=== PATIENT | female | born 1965 | race Caucasian/White ===

== ENCOUNTER 2020-12-09 22:57 | Inpatient (IN) | payer MEDICARE, MEDICAID ==
[~2020-12-09] VITALS: Ht 160 cm; Wt 122.9 kg
[2020-12-09] MEDS ORDERED: FAMO20 PO (23:28)
[2020-12-09] MEDS ORDERED: CYCL10TA17 PO (23:28)
[2020-12-09] MEDS ORDERED: SERT-162 PO (23:28)
[2020-12-09 23:58] LABS: COVID AG,FIA SOURCE NASOPHARYNGEAL
[2020-12-10 00:04] LABS: BASOPHILS % (AUTO) 0.2 % (0.0-2.0); EOSINOPHILS % (AUTO) 5.1 % (1.0-6.0); HEMATOCRIT 23.9 % (36-46); HEMOGLOBIN 7.8 g/dL (12.0-16.0); LYMPHOCYTES % (AUTO) 10.6 % (22.0-44.0); MEAN CORPUSCULAR HEMOGLOBIN 35.2 pg (26.0-34.0); MEAN CORPUSCULAR HGB CONC 32.5 G/dL (31.0-37.0); MEAN CORPUSCULAR VOLUME 109 fL (80-100); MONOCYTES # (AUTO) 0.8 K/uL (0.1-1.0); MONOCYTES % (AUTO) 8.8 % (2.0-9.0); NEUTROPHILS % (AUTO) 75.3 % (40.0-70.0); PLATELET COUNT (AUTO) 485 K/uL (150-450); RED BLOOD CELL COUNT(AUTO) 2.21 MIL/uL (4.00-5.20); RED CELL DISTRIBUTION WIDTH 22.2 % (11.5-14.5)
[2020-12-10 00:07] LABS: ANION GAP 11 mmol/L (8-16); CALCIUM, TOTAL 8.2 mg/dL (8.8-10.5); CARBON DIOXIDE 26 mmol/L (22-29); CHLORIDE 105 mmol/L (98-107); CREATININE 0.65 mg/dL (0.60-1.30); GLOMERULAR FILTR. RATE CALC > 60 mL/min (>60); GLUCOSE,RANDOM 173 mg/dL (70-110); POTASSIUM 3.9 mmol/L (3.5-5.1); SODIUM SERUM 142 mmol/L (136-145); UREA NITROGEN, BLOOD 11 mg/dL (7-18)
[2020-12-10 00:12] LABS: ALANINE AMINOTRANSFERASE 37 U/L (12-78); ALKALINE PHOSPHATASE 92 U/L (46-116); ASPARTATE AMINOTRANSFERASE 39 U/L (15-37); BILIRUBIN,TOTAL 0.2 mg/dL (0.1-1.0); TOTAL PROTEIN, SERUM 6.7 g/dL (6.4-8.2)
[2020-12-10 00:13] LABS: SALICYLATE 2.8 mg/dL (2.8-20.0)
[2020-12-10 00:23] LABS: ACETAMINOPHEN < 2 mcg/mL (10-30)
[2020-12-10] MEDS ORDERED: QUEtiapine FUMARATE 100 MG TABLET PO ONE (01:45)
[2020-12-10] MEDS ORDERED: DiphenhydrAMINE HCL 25 MG CAPSULE PO ONE (01:45)
[2020-12-10] MEDS ORDERED: ZOLPIDEM TARTRATE 10 MG TABLET PO PRN (02:00)
[2020-12-10] MEDS ORDERED: HALOPERIDOL 5 MG TABLET PO PRN (02:00)
[2020-12-10] MEDS ORDERED: PETROLATUM,WHITE 28 GM JELLY TP PRN (10:15)
[2020-12-10] MEDS ORDERED: GuaiFENesin/D-METHORPHAN [SUGAR-FREE] 200-20MG/10 ML SYRUP UDCUP PO PRN (10:15)
[2020-12-10] MEDS ORDERED: CloNIDine HCL 0.1 MG TABLET PO PRN (10:15)
[2020-12-10] MEDS ORDERED: NICOTINE 14 MG/24 HOUR PATCH TD PRN (10:15)
[2020-12-10] MEDS ORDERED: LOPERAMIDE HCL 2 MG CAPSULE PO PRN (10:15)
[2020-12-10] MEDS ORDERED: DOCUSATE SODIUM 100 MG CAPSULE PO PRN (10:15)
[2020-12-10] MEDS ORDERED: MAGNESIUM HYDROXIDE SUSPENSION 30 ML UDCUP PO PRN (10:15)
[2020-12-10] MEDS ORDERED: MAG HYDROX/AL HYDROX/SIMETH ES 30 ML SUSPENSION UDCUP PO PRN (10:15)
[2020-12-10] MEDS ORDERED: ALBUTEROL SULFATE HFA 90 MCG/PUFF 8 GM INHALER IH PRN (10:15)
[2020-12-10] MEDS ORDERED: ONDANSETRON HCL 4 MG TABLET PO PRN (10:15)
[2020-12-10 10:37] LABS: GLUCOMETER DEV NAME(LOC) BV2X.2; GLUCOSE,POINT OF CARE 195 MG/DL (70-110)
[2020-12-10 11:24] VITALS: BP 138/78
[2020-12-10] MEDS ORDERED: GLUCAGON,HUMAN RECOMBINANT 1 MG VIAL IM PRN (12:15)
[2020-12-10] MEDS ORDERED: INFLUENZA VIRUS VACCINE QVS 2021-22 (6MO+)/PF 60 MCG/0.5 ML SYRINGE IM. ONE (13:15)
[2020-12-10] MEDS ORDERED: PERMETHRIN 5% 60 GM CREAM TP ONE (14:00)
[2020-12-10] MEDS: CYCLOBENZAPRINE HCL 10 MG TABLET PO SCH (16:45)
[2020-12-10] MEDS: INSULIN LISPRO 100 UNITS/ML SQ PRN ×2 (16:57→21:11)
[2020-12-10 17:08] LABS: GLUCOMETER DEV NAME(LOC) BV2X.2; GLUCOSE,POINT OF CARE 166 MG/DL (70-110)
[2020-12-10] MEDS: SERTRALINE HCL 100 MG TABLET PO SCH (20:02)
[2020-12-10 20:18] LABS: GLUCOMETER DEV NAME(LOC) BV2X.2; GLUCOSE,POINT OF CARE 192 MG/DL (70-110)
[2020-12-11 00:11] VITALS: BP 129/80
[2020-12-11 05:53] LABS: GLUCOMETER DEV NAME(LOC) BV2X.2; GLUCOSE,POINT OF CARE 143 MG/DL (70-110)
[2020-12-11] MEDS: INSULIN LISPRO 100 UNITS/ML SQ PRN ×4 (06:33→21:02)
[2020-12-11 08:22] VITALS: BP 110/63
[2020-12-11 08:25] LABS: CHOL/HDL RATIO 3.4 (3.9-5.7)
[2020-12-11] MEDS: CYCLOBENZAPRINE HCL 10 MG TABLET PO SCH ×2 (08:30→16:21)
[2020-12-11] MEDS: FAMOTIDINE 20 MG TABLET PO SCH (08:30)
[2020-12-11] MEDS: LORazepam 2 MG TABLET PO PRN (08:31)
[2020-12-11] MEDS: NICOTINE 14 MG/24 HOUR PATCH TD SCH (11:50)
[2020-12-11] MEDS: QUEtiapine FUMARATE 100 MG TABLET PO SCH (11:50)
[2020-12-11 11:52] LABS: GLUCOMETER DEV NAME(LOC) BV2X.2; GLUCOSE,POINT OF CARE 196 MG/DL (70-110)
[2020-12-11 16:03] VITALS: BP 108/64
[2020-12-11 16:53] LABS: GLUCOMETER DEV NAME(LOC) BV2X.2; GLUCOSE,POINT OF CARE 143 MG/DL (70-110)
[2020-12-11] MEDS: QUEtiapine FUMARATE 300 MG TABLET PO SCH (20:24)
[2020-12-11] MEDS: SERTRALINE HCL 100 MG TABLET PO SCH (20:25)
[2020-12-11 21:09] LABS: GLUCOMETER DEV NAME(LOC) BV2X.2; GLUCOSE,POINT OF CARE 224 MG/DL (70-110)
[2020-12-12 06:11] LABS: GLUCOMETER DEV NAME(LOC) BV2X.2; GLUCOSE,POINT OF CARE 131 MG/DL (70-110)
[2020-12-12 08:05] VITALS: BP 103/63
[2020-12-12] MEDS: CYCLOBENZAPRINE HCL 10 MG TABLET PO SCH ×2 (08:49→16:09)
[2020-12-12] MEDS: FAMOTIDINE 20 MG TABLET PO SCH (08:49)
[2020-12-12] MEDS: QUEtiapine FUMARATE 100 MG TABLET PO SCH (08:50)
[2020-12-12] MEDS: NICOTINE 14 MG/24 HOUR PATCH TD SCH (08:56)
[2020-12-12] MEDS: LORazepam 2 MG TABLET PO PRN ×2 (11:17→16:17)
[2020-12-12] MEDS: INSULIN LISPRO 100 UNITS/ML SQ PRN ×3 (11:29→20:38)
[2020-12-12 16:07] VITALS: BP 106/64
[2020-12-12 16:29] LABS: GLUCOMETER DEV NAME(LOC) BV2X.2; GLUCOSE,POINT OF CARE 163 MG/DL (70-110)
[2020-12-12] MEDS: SERTRALINE HCL 100 MG TABLET PO SCH (20:29)
[2020-12-12] MEDS: DiphenhydrAMINE HCL 25 MG CAPSULE PO PRN (20:29)
[2020-12-12] MEDS: QUEtiapine FUMARATE 300 MG TABLET PO SCH (20:29)
[2020-12-12 20:55] LABS: GLUCOMETER DEV NAME(LOC) BV2X.2; GLUCOSE,POINT OF CARE 158 MG/DL (70-110)
[2020-12-13 00:05] VITALS: BP 120/63
[2020-12-13 06:48] LABS: GLUCOMETER DEV NAME(LOC) BV2X.2; GLUCOSE,POINT OF CARE 151 MG/DL (70-110)
[2020-12-13] MEDS: INSULIN LISPRO 100 UNITS/ML SQ PRN ×4 (06:48→21:07)
[2020-12-13] MEDS: QUEtiapine FUMARATE 100 MG TABLET PO SCH (08:22)
[2020-12-13] MEDS: NICOTINE 14 MG/24 HOUR PATCH TD SCH (08:23)
[2020-12-13] MEDS: FAMOTIDINE 20 MG TABLET PO SCH (08:23)
[2020-12-13] MEDS: CYCLOBENZAPRINE HCL 10 MG TABLET PO SCH ×2 (08:23→16:39)
[2020-12-13] MEDS: MULTIVITAMINS WITH IRON TABLET PO SCH (08:23)
[2020-12-13 08:36] VITALS: BP 105/62
[2020-12-13] MEDS: IBUPROFEN 400 MG TABLET PO PRN (10:46)
[2020-12-13 11:09] LABS: GLUCOMETER DEV NAME(LOC) BV2X.2; GLUCOSE,POINT OF CARE 191 MG/DL (70-110)
[2020-12-13 16:24] VITALS: BP 111/60
[2020-12-13 16:24] LABS: GLUCOMETER DEV NAME(LOC) BV2X.2; GLUCOSE,POINT OF CARE 152 MG/DL (70-110)
[2020-12-13 20:21] LABS: GLUCOMETER DEV NAME(LOC) BV2X.2; GLUCOSE,POINT OF CARE 195 MG/DL (70-110)
[2020-12-13] MEDS: QUEtiapine FUMARATE 300 MG TABLET PO SCH (21:07)
[2020-12-13] MEDS: SERTRALINE HCL 100 MG TABLET PO SCH (21:07)
[2020-12-14 00:10] VITALS: BP 108/62
[2020-12-14 06:51] LABS: GLUCOMETER DEV NAME(LOC) BV2X.2; GLUCOSE,POINT OF CARE 133 MG/DL (70-110)
[2020-12-14] MEDS: FAMOTIDINE 20 MG TABLET PO SCH (08:15)
[2020-12-14] MEDS: CYCLOBENZAPRINE HCL 10 MG TABLET PO SCH ×2 (08:15→16:10)
[2020-12-14] MEDS: QUEtiapine FUMARATE 100 MG TABLET PO SCH (08:16)
[2020-12-14] MEDS: NICOTINE 14 MG/24 HOUR PATCH TD SCH (08:17)
[2020-12-14 08:25] VITALS: BP 104/58
[2020-12-14] MEDS: LORazepam 2 MG TABLET PO PRN (08:26)
[2020-12-14] MEDS: ACETAMINOPHEN 325 MG TABLET PO PRN (08:27)
[2020-12-14] MEDS: MULTIVITAMINS WITH IRON TABLET PO SCH (09:54)
[2020-12-14] MEDS: INSULIN LISPRO 100 UNITS/ML SQ PRN ×3 (11:23→20:24)
[2020-12-14] MEDS: DiphenhydrAMINE HCL 25 MG CAPSULE PO PRN (11:26)
[2020-12-14 11:30] LABS: GLUCOMETER DEV NAME(LOC) BV2X.2; GLUCOSE,POINT OF CARE 229 MG/DL (70-110)
[2020-12-14 16:04] VITALS: BP 107/88
[2020-12-14 16:55] LABS: GLUCOMETER DEV NAME(LOC) BV2X.2; GLUCOSE,POINT OF CARE 153 MG/DL (70-110)
[2020-12-14] MEDS: QUEtiapine FUMARATE 300 MG TABLET PO SCH (20:11)
[2020-12-14] MEDS: SERTRALINE HCL 100 MG TABLET PO SCH (20:11)
[2020-12-14 20:21] LABS: GLUCOMETER DEV NAME(LOC) BV2X.2; GLUCOSE,POINT OF CARE 202 MG/DL (70-110)
[2020-12-15 00:38] VITALS: BP 142/66
[2020-12-15 06:26] LABS: GLUCOMETER DEV NAME(LOC) BV2X.2; GLUCOSE,POINT OF CARE 139 MG/DL (70-110)
[2020-12-15 07:35] LABS: COVID AG,FIA SOURCE NASOPHARYNGEAL
[2020-12-15] MEDS: QUEtiapine FUMARATE 100 MG TABLET PO SCH (08:07)
[2020-12-15] MEDS: FAMOTIDINE 20 MG TABLET PO SCH (08:08)
[2020-12-15] MEDS: MULTIVITAMINS WITH IRON TABLET PO SCH (08:08)
[2020-12-15] MEDS: CYCLOBENZAPRINE HCL 10 MG TABLET PO SCH ×2 (08:08→16:32)
[2020-12-15 08:09] VITALS: BP 107/59
[2020-12-15] MEDS: NICOTINE 14 MG/24 HOUR PATCH TD SCH (08:09)
[2020-12-15] MEDS: INSULIN LISPRO 100 UNITS/ML SQ PRN ×3 (12:52→20:46)
[2020-12-15 13:00] LABS: GLUCOMETER DEV NAME(LOC) BV2X.2; GLUCOSE,POINT OF CARE 265 MG/DL (70-110)
[2020-12-15] MEDS: ACETAMINOPHEN 325 MG TABLET PO PRN (13:59)
[2020-12-15 16:04] VITALS: BP 120/75
[2020-12-15] MEDS: LORazepam 2 MG TABLET PO PRN (16:05)
[2020-12-15 16:29] LABS: GLUCOMETER DEV NAME(LOC) BV2X.2; GLUCOSE,POINT OF CARE 228 MG/DL (70-110)
[2020-12-15] MEDS: QUEtiapine FUMARATE 300 MG TABLET PO SCH (20:27)
[2020-12-15] MEDS: SERTRALINE HCL 100 MG TABLET PO SCH (20:27)
[2020-12-15 20:37] LABS: GLUCOMETER DEV NAME(LOC) BV2X.2; GLUCOSE,POINT OF CARE 167 MG/DL (70-110)
[2020-12-16 06:14] LABS: GLUCOMETER DEV NAME(LOC) BV2X.2; GLUCOSE,POINT OF CARE 137 MG/DL (70-110)
[2020-12-16 06:29] VITALS: BP 118/76
[2020-12-16] MEDS: ACETAMINOPHEN 325 MG TABLET PO PRN (06:32)
[2020-12-16 08:01] VITALS: BP 122/78
[2020-12-16] MEDS: MULTIVITAMINS WITH IRON TABLET PO SCH (08:09)
[2020-12-16] MEDS: CYCLOBENZAPRINE HCL 10 MG TABLET PO SCH ×2 (08:09→16:28)
[2020-12-16] MEDS: NICOTINE 14 MG/24 HOUR PATCH TD SCH (08:09)
[2020-12-16] MEDS: QUEtiapine FUMARATE 100 MG TABLET PO SCH (08:09)
[2020-12-16] MEDS: FAMOTIDINE 20 MG TABLET PO SCH (08:09)
[2020-12-16] MEDS: INSULIN LISPRO 100 UNITS/ML SQ PRN ×3 (11:22→20:42)
[2020-12-16] MEDS: IBUPROFEN 400 MG TABLET PO PRN (11:23)
[2020-12-16 11:25] LABS: GLUCOMETER DEV NAME(LOC) BV2X.2; GLUCOSE,POINT OF CARE 248 MG/DL (70-110)
[2020-12-16] MEDS ORDERED: PERMETHRIN 5% 60 GM CREAM TP ONE (12:15)
[2020-12-16] MEDS: LORazepam 2 MG TABLET PO PRN (14:17)
[2020-12-16 16:00] VITALS: BP 101/69
[2020-12-16 16:24] LABS: GLUCOMETER DEV NAME(LOC) BV2X.2; GLUCOSE,POINT OF CARE 207 MG/DL (70-110)
[2020-12-16 20:20] LABS: GLUCOMETER DEV NAME(LOC) BV2X.2; GLUCOSE,POINT OF CARE 192 MG/DL (70-110)
[2020-12-16] MEDS: QUEtiapine FUMARATE 300 MG TABLET PO SCH (20:27)
[2020-12-16] MEDS: SERTRALINE HCL 100 MG TABLET PO SCH (20:27)
[2020-12-17 06:08] VITALS: BP 124/73
[2020-12-17 06:21] LABS: GLUCOMETER DEV NAME(LOC) BV2X.2; GLUCOSE,POINT OF CARE 156 MG/DL (70-110)
[2020-12-17] MEDS: INSULIN LISPRO 100 UNITS/ML SQ PRN ×4 (06:40→21:25)
[2020-12-17 08:15] VITALS: BP 106/67
[2020-12-17] MEDS: CYCLOBENZAPRINE HCL 10 MG TABLET PO SCH ×2 (08:16→16:58)
[2020-12-17] MEDS: QUEtiapine FUMARATE 100 MG TABLET PO SCH (08:16)
[2020-12-17] MEDS: FAMOTIDINE 20 MG TABLET PO SCH (08:16)
[2020-12-17] MEDS: MULTIVITAMINS WITH IRON TABLET PO SCH (08:16)
[2020-12-17] MEDS: NICOTINE 14 MG/24 HOUR PATCH TD SCH (08:18)
[2020-12-17] MEDS: SERTRALINE HCL 50 MG TABLET PO SCH (10:54)
[2020-12-17 11:39] LABS: GLUCOMETER DEV NAME(LOC) BV2X.2; GLUCOSE,POINT OF CARE 159 MG/DL (70-110)
[2020-12-17] MEDS: DiphenhydrAMINE HCL 25 MG CAPSULE PO PRN ×2 (14:30→16:57)
[2020-12-17 16:04] VITALS: BP 101/60
[2020-12-17 16:47] LABS: GLUCOMETER DEV NAME(LOC) BV2X.2; GLUCOSE,POINT OF CARE 244 MG/DL (70-110)
[2020-12-17] MEDS: SERTRALINE HCL 100 MG TABLET PO SCH (20:37)
[2020-12-17] MEDS: DiphenhydrAMINE HCL 25 MG CAPSULE PO SCH (20:37)
[2020-12-17] MEDS: QUEtiapine FUMARATE 300 MG TABLET PO SCH (20:37)
[2020-12-17] MEDS: MINERAL OIL/PETROLATUM 120 GM CREAM TP SCH (21:09)
[2020-12-17 21:31] LABS: GLUCOMETER DEV NAME(LOC) BV2X.2; GLUCOSE,POINT OF CARE 250 MG/DL (70-110)
[2020-12-18 00:25] VITALS: BP 106/69
[2020-12-18 06:42] LABS: GLUCOMETER DEV NAME(LOC) BV2X.2; GLUCOSE,POINT OF CARE 129 MG/DL (70-110)
[2020-12-18 08:03] VITALS: BP 106/71
[2020-12-18] MEDS: NICOTINE 14 MG/24 HOUR PATCH TD SCH (09:01)
[2020-12-18] MEDS: MULTIVITAMINS WITH IRON TABLET PO SCH (09:01)
[2020-12-18] MEDS: FAMOTIDINE 20 MG TABLET PO SCH (09:02)
[2020-12-18] MEDS: DiphenhydrAMINE HCL 25 MG CAPSULE PO SCH ×2 (09:02→21:03)
[2020-12-18] MEDS: CYCLOBENZAPRINE HCL 10 MG TABLET PO SCH ×2 (09:02→17:02)
[2020-12-18] MEDS: QUEtiapine FUMARATE 100 MG TABLET PO SCH (09:02)
[2020-12-18] MEDS: SERTRALINE HCL 50 MG TABLET PO SCH (09:09)
[2020-12-18] MEDS: MINERAL OIL/PETROLATUM 120 GM CREAM TP SCH ×2 (09:22→21:04)
[2020-12-18] MEDS: ACETAMINOPHEN 325 MG TABLET PO PRN (11:29)
[2020-12-18 11:34] LABS: GLUCOMETER DEV NAME(LOC) BV2X.2; GLUCOSE,POINT OF CARE 136 MG/DL (70-110)
[2020-12-18] MEDS: LORazepam 2 MG TABLET PO PRN (11:45)
[2020-12-18 16:03] VITALS: BP 109/69
[2020-12-18] MEDS: INSULIN LISPRO 100 UNITS/ML SQ PRN ×2 (17:05→21:05)
[2020-12-18 17:21] LABS: GLUCOMETER DEV NAME(LOC) BV2X.2; GLUCOSE,POINT OF CARE 151 MG/DL (70-110)
[2020-12-18] MEDS: IBUPROFEN 400 MG TABLET PO PRN (19:00)
[2020-12-18] MEDS: QUEtiapine FUMARATE 300 MG TABLET PO SCH (21:03)
[2020-12-18] MEDS: SERTRALINE HCL 100 MG TABLET PO SCH (21:03)
[2020-12-18 21:25] LABS: GLUCOMETER DEV NAME(LOC) BV2X.2; GLUCOSE,POINT OF CARE 198 MG/DL (70-110)
[2020-12-19 05:34] VITALS: BP 110/74
[2020-12-19 06:17] LABS: GLUCOMETER DEV NAME(LOC) BV2X.2; GLUCOSE,POINT OF CARE 145 MG/DL (70-110)
[2020-12-19] MEDS: INSULIN LISPRO 100 UNITS/ML SQ PRN ×4 (07:00→20:57)
[2020-12-19 08:05] VITALS: BP 118/79
[2020-12-19] MEDS: CYCLOBENZAPRINE HCL 10 MG TABLET PO SCH ×2 (09:01→16:47)
[2020-12-19] MEDS: QUEtiapine FUMARATE 100 MG TABLET PO SCH (09:01)
[2020-12-19] MEDS: NICOTINE 14 MG/24 HOUR PATCH TD SCH (09:01)
[2020-12-19] MEDS: SERTRALINE HCL 50 MG TABLET PO SCH (09:02)
[2020-12-19] MEDS: FAMOTIDINE 20 MG TABLET PO SCH (09:02)
[2020-12-19] MEDS: MULTIVITAMINS WITH IRON TABLET PO SCH (09:02)
[2020-12-19] MEDS: DiphenhydrAMINE HCL 25 MG CAPSULE PO SCH ×2 (09:02→20:47)
[2020-12-19] MEDS: MINERAL OIL/PETROLATUM 120 GM CREAM TP SCH ×2 (09:08→22:24)
[2020-12-19] MEDS ORDERED: SERTRALINE HCL 100 MG TABLET PO ONE (11:30)
[2020-12-19 11:42] LABS: GLUCOMETER DEV NAME(LOC) BV2X.2; GLUCOSE,POINT OF CARE 163 MG/DL (70-110)
[2020-12-19] MEDS: IBUPROFEN 400 MG TABLET PO PRN (12:29)
[2020-12-19 16:06] VITALS: BP 109/60
[2020-12-19] MEDS: LORazepam 2 MG TABLET PO PRN (16:55)
[2020-12-19 17:11] LABS: GLUCOMETER DEV NAME(LOC) BV2X.2; GLUCOSE,POINT OF CARE 248 MG/DL (70-110)
[2020-12-19] MEDS: QUEtiapine FUMARATE 300 MG TABLET PO SCH (20:47)
[2020-12-19 21:03] LABS: GLUCOMETER DEV NAME(LOC) BV2X.2; GLUCOSE,POINT OF CARE 257 MG/DL (70-110)
[2020-12-20 00:08] VITALS: BP 120/76
[2020-12-20] MEDS: INSULIN LISPRO 100 UNITS/ML SQ PRN ×4 (06:19→21:08)
[2020-12-20 06:30] LABS: GLUCOMETER DEV NAME(LOC) BV2X.2; GLUCOSE,POINT OF CARE 165 MG/DL (70-110)
[2020-12-20 08:23] VITALS: BP 100/60
[2020-12-20] MEDS: DiphenhydrAMINE HCL 25 MG CAPSULE PO SCH ×2 (09:20→20:59)
[2020-12-20] MEDS: CYCLOBENZAPRINE HCL 10 MG TABLET PO SCH ×2 (09:21→16:29)
[2020-12-20] MEDS: QUEtiapine FUMARATE 100 MG TABLET PO SCH (09:21)
[2020-12-20] MEDS: SERTRALINE HCL 100 MG TABLET PO SCH (09:21)
[2020-12-20] MEDS: MULTIVITAMINS WITH IRON TABLET PO SCH (09:22)
[2020-12-20] MEDS: FAMOTIDINE 20 MG TABLET PO SCH (09:22)
[2020-12-20] MEDS: NICOTINE 14 MG/24 HOUR PATCH TD SCH (09:23)
[2020-12-20] MEDS: MINERAL OIL/PETROLATUM 120 GM CREAM TP SCH ×2 (09:24→21:03)
[2020-12-20] MEDS: LORazepam 2 MG TABLET PO PRN (10:36)
[2020-12-20 11:28] LABS: GLUCOMETER DEV NAME(LOC) BV2X.2; GLUCOSE,POINT OF CARE 237 MG/DL (70-110)
[2020-12-20 16:06] VITALS: BP 101/60
[2020-12-20 16:33] LABS: GLUCOMETER DEV NAME(LOC) BV2X.2; GLUCOSE,POINT OF CARE 234 MG/DL (70-110)
[2020-12-20] MEDS: QUEtiapine FUMARATE 300 MG TABLET PO SCH (20:59)
[2020-12-20 21:31] LABS: GLUCOMETER DEV NAME(LOC) BV2X.2; GLUCOSE,POINT OF CARE 206 MG/DL (70-110)
[2020-12-21 06:03] VITALS: BP 123/75
[2020-12-21 06:25] LABS: GLUCOMETER DEV NAME(LOC) BV2X.2; GLUCOSE,POINT OF CARE 141 MG/DL (70-110)
[2020-12-21] MEDS: INSULIN LISPRO 100 UNITS/ML SQ PRN ×4 (06:38→20:41)
[2020-12-21] MEDS: MULTIVITAMINS WITH IRON TABLET PO SCH (09:19)
[2020-12-21] MEDS: DiphenhydrAMINE HCL 25 MG CAPSULE PO SCH ×2 (09:19→20:21)
[2020-12-21] MEDS: CYCLOBENZAPRINE HCL 10 MG TABLET PO SCH ×2 (09:19→16:31)
[2020-12-21] MEDS: SERTRALINE HCL 100 MG TABLET PO SCH (09:19)
[2020-12-21] MEDS: MINERAL OIL/PETROLATUM 120 GM CREAM TP SCH ×2 (09:20→20:30)
[2020-12-21] MEDS: QUEtiapine FUMARATE 100 MG TABLET PO SCH (09:20)
[2020-12-21] MEDS: NICOTINE 14 MG/24 HOUR PATCH TD SCH (09:20)
[2020-12-21] MEDS: FAMOTIDINE 20 MG TABLET PO SCH (09:20)
[2020-12-21 10:12] VITALS: BP 114/65
[2020-12-21] MEDS: LORazepam 2 MG TABLET PO PRN (10:43)
[2020-12-21 11:22] LABS: GLUCOMETER DEV NAME(LOC) BV2X.2; GLUCOSE,POINT OF CARE 200 MG/DL (70-110)
[2020-12-21 16:15] VITALS: BP 114/67
[2020-12-21 16:54] LABS: GLUCOMETER DEV NAME(LOC) BV2X.2; GLUCOSE,POINT OF CARE 186 MG/DL (70-110)
[2020-12-21] MEDS: ACETAMINOPHEN 325 MG TABLET PO PRN (17:18)
[2020-12-21] MEDS: QUEtiapine FUMARATE 300 MG TABLET PO SCH (20:21)
[2020-12-21] MEDS: IBUPROFEN 400 MG TABLET PO PRN (20:31)
[2020-12-21 20:56] LABS: GLUCOMETER DEV NAME(LOC) BV2X.2; GLUCOSE,POINT OF CARE 290 MG/DL (70-110)
[2020-12-22 06:25] LABS: GLUCOMETER DEV NAME(LOC) BV2X.2; GLUCOSE,POINT OF CARE 164 MG/DL (70-110)
[2020-12-22] MEDS: INSULIN LISPRO 100 UNITS/ML SQ PRN ×4 (06:42→20:38)
[2020-12-22 06:59] VITALS: BP 134/83
[2020-12-22 07:38] LABS: COVID AG,FIA SOURCE NASOPHARYNGEAL
[2020-12-22 08:38] VITALS: BP 106/61
[2020-12-22] MEDS: NICOTINE 14 MG/24 HOUR PATCH TD SCH (09:11)
[2020-12-22] MEDS: QUEtiapine FUMARATE 100 MG TABLET PO SCH (09:12)
[2020-12-22] MEDS: CYCLOBENZAPRINE HCL 10 MG TABLET PO SCH ×2 (09:14→16:32)
[2020-12-22] MEDS: FAMOTIDINE 20 MG TABLET PO SCH (09:14)
[2020-12-22] MEDS: SERTRALINE HCL 100 MG TABLET PO SCH (09:14)
[2020-12-22] MEDS: MULTIVITAMINS WITH IRON TABLET PO SCH (09:14)
[2020-12-22] MEDS: DiphenhydrAMINE HCL 25 MG CAPSULE PO SCH ×2 (09:14→20:30)
[2020-12-22] MEDS: MINERAL OIL/PETROLATUM 120 GM CREAM TP SCH ×2 (09:15→20:30)
[2020-12-22] MEDS: LORazepam 2 MG TABLET PO PRN (11:10)
[2020-12-22 11:16] LABS: GLUCOMETER DEV NAME(LOC) BV2X.2; GLUCOSE,POINT OF CARE 214 MG/DL (70-110)
[2020-12-22 16:18] VITALS: BP 111/62
[2020-12-22 16:24] LABS: GLUCOMETER DEV NAME(LOC) BV2X.2; GLUCOSE,POINT OF CARE 209 MG/DL (70-110)
[2020-12-22] MEDS: GABAPENTIN 300 MG CAPSULE PO SCH (16:33)
[2020-12-22 20:28] LABS: GLUCOMETER DEV NAME(LOC) BV2X.2; GLUCOSE,POINT OF CARE 195 MG/DL (70-110)
[2020-12-22] MEDS: QUEtiapine FUMARATE 300 MG TABLET PO SCH (20:30)
[2020-12-23 00:51] VITALS: BP 112/62
[2020-12-23 06:48] LABS: GLUCOMETER DEV NAME(LOC) BV2X.2; GLUCOSE,POINT OF CARE 155 MG/DL (70-110)
[2020-12-23] MEDS: INSULIN LISPRO 100 UNITS/ML SQ PRN ×4 (07:04→20:45)
[2020-12-23 08:41] VITALS: BP 103/67
[2020-12-23] MEDS: FAMOTIDINE 20 MG TABLET PO SCH (09:07)
[2020-12-23] MEDS: GABAPENTIN 300 MG CAPSULE PO SCH ×2 (09:07→16:30)
[2020-12-23] MEDS: QUEtiapine FUMARATE 100 MG TABLET PO SCH (09:07)
[2020-12-23] MEDS: CYCLOBENZAPRINE HCL 10 MG TABLET PO SCH ×2 (09:08→16:30)
[2020-12-23] MEDS: NICOTINE 14 MG/24 HOUR PATCH TD SCH (09:08)
[2020-12-23] MEDS: MULTIVITAMINS WITH IRON TABLET PO SCH (09:08)
[2020-12-23] MEDS: SERTRALINE HCL 100 MG TABLET PO SCH (09:08)
[2020-12-23] MEDS: DiphenhydrAMINE HCL 25 MG CAPSULE PO SCH ×2 (09:08→20:33)
[2020-12-23] MEDS: MINERAL OIL/PETROLATUM 120 GM CREAM TP SCH ×2 (09:10→20:32)
[2020-12-23] MEDS: LORazepam 2 MG TABLET PO PRN ×2 (10:21→16:30)
[2020-12-23 17:04] LABS: GLUCOMETER DEV NAME(LOC) BV2X.2; GLUCOSE,POINT OF CARE 189 MG/DL (70-110)
[2020-12-23 17:10] VITALS: BP 114/72
[2020-12-23] MEDS: QUEtiapine FUMARATE 300 MG TABLET PO SCH (20:33)
[2020-12-23 20:56] LABS: GLUCOMETER DEV NAME(LOC) BV2X.2; GLUCOSE,POINT OF CARE 229 MG/DL (70-110)
[2020-12-24 05:40] VITALS: BP 116/70
[2020-12-24 06:41] LABS: GLUCOMETER DEV NAME(LOC) BV2X.2; GLUCOSE,POINT OF CARE 162 MG/DL (70-110)
[2020-12-24] MEDS: INSULIN LISPRO 100 UNITS/ML SQ PRN ×4 (06:58→20:40)
[2020-12-24 08:04] VITALS: BP 110/64
[2020-12-24] MEDS: GABAPENTIN 300 MG CAPSULE PO SCH ×2 (08:34→16:06)
[2020-12-24] MEDS: CYCLOBENZAPRINE HCL 10 MG TABLET PO SCH ×2 (08:34→16:07)
[2020-12-24] MEDS: MULTIVITAMINS WITH IRON TABLET PO SCH (08:34)
[2020-12-24] MEDS: FAMOTIDINE 20 MG TABLET PO SCH (08:34)
[2020-12-24] MEDS: DiphenhydrAMINE HCL 25 MG CAPSULE PO SCH ×2 (08:34→20:25)
[2020-12-24] MEDS: QUEtiapine FUMARATE 100 MG TABLET PO SCH (08:34)
[2020-12-24] MEDS: SERTRALINE HCL 100 MG TABLET PO SCH (08:34)
[2020-12-24] MEDS: MINERAL OIL/PETROLATUM 120 GM CREAM TP SCH ×2 (08:35→20:26)
[2020-12-24] MEDS: NICOTINE 14 MG/24 HOUR PATCH TD SCH (08:35)
[2020-12-24] MEDS: LORazepam 2 MG TABLET PO PRN (11:17)
[2020-12-24 11:35] LABS: GLUCOMETER DEV NAME(LOC) BV2X.2; GLUCOSE,POINT OF CARE 270 MG/DL (70-110)
[2020-12-24 16:08] VITALS: BP 139/77
[2020-12-24 16:24] LABS: GLUCOMETER DEV NAME(LOC) BV2X.2; GLUCOSE,POINT OF CARE 234 MG/DL (70-110)
[2020-12-24] MEDS: QUEtiapine FUMARATE 300 MG TABLET PO SCH (20:25)
[2020-12-24 20:59] LABS: GLUCOMETER DEV NAME(LOC) BV2X.2; GLUCOSE,POINT OF CARE 264 MG/DL (70-110)
[2020-12-25 05:37] VITALS: BP 122/73
[2020-12-25 06:24] LABS: GLUCOMETER DEV NAME(LOC) BV2X.2; GLUCOSE,POINT OF CARE 193 MG/DL (70-110)
[2020-12-25] MEDS: INSULIN LISPRO 100 UNITS/ML SQ PRN ×4 (06:34→20:43)
[2020-12-25 07:16] VITALS: BP 122/72
[2020-12-25] MEDS: ACETAMINOPHEN 325 MG TABLET PO PRN (07:20)
[2020-12-25 08:06] VITALS: BP 106/52
[2020-12-25] MEDS: GABAPENTIN 300 MG CAPSULE PO SCH ×2 (08:51→16:09)
[2020-12-25] MEDS: MULTIVITAMINS WITH IRON TABLET PO SCH (08:51)
[2020-12-25] MEDS: SERTRALINE HCL 100 MG TABLET PO SCH (08:51)
[2020-12-25] MEDS: CYCLOBENZAPRINE HCL 10 MG TABLET PO SCH ×2 (08:51→16:09)
[2020-12-25] MEDS: FAMOTIDINE 20 MG TABLET PO SCH (08:52)
[2020-12-25] MEDS: DiphenhydrAMINE HCL 25 MG CAPSULE PO SCH ×2 (08:52→20:33)
[2020-12-25] MEDS: QUEtiapine FUMARATE 100 MG TABLET PO SCH (08:52)
[2020-12-25] MEDS: NICOTINE 14 MG/24 HOUR PATCH TD SCH (08:53)
[2020-12-25] MEDS: MINERAL OIL/PETROLATUM 120 GM CREAM TP SCH ×2 (08:53→20:33)
[2020-12-25] MEDS: LORazepam 2 MG TABLET PO PRN ×2 (09:41→17:13)
[2020-12-25 11:25] LABS: GLUCOMETER DEV NAME(LOC) BV2X.2; GLUCOSE,POINT OF CARE 270 MG/DL (70-110)
[2020-12-25] MEDS: IBUPROFEN 400 MG TABLET PO PRN (14:16)
[2020-12-25 16:06] VITALS: BP 110/70
[2020-12-25 16:42] LABS: GLUCOMETER DEV NAME(LOC) BV2X.2; GLUCOSE,POINT OF CARE 240 MG/DL (70-110)
[2020-12-25] MEDS: QUEtiapine FUMARATE 300 MG TABLET PO SCH (20:33)
[2020-12-25 20:51] LABS: GLUCOMETER DEV NAME(LOC) BV2X.2; GLUCOSE,POINT OF CARE 316 MG/DL (70-110)
[2020-12-26 00:27] VITALS: BP 108/64
[2020-12-26] MEDS: INSULIN LISPRO 100 UNITS/ML SQ PRN ×4 (07:00→20:49)
[2020-12-26 07:01] LABS: GLUCOMETER DEV NAME(LOC) BV2X.2; GLUCOSE,POINT OF CARE 184 MG/DL (70-110)
[2020-12-26 08:05] VITALS: BP 107/61
[2020-12-26] MEDS: CYCLOBENZAPRINE HCL 10 MG TABLET PO SCH ×2 (08:38→16:20)
[2020-12-26] MEDS: FAMOTIDINE 20 MG TABLET PO SCH (08:38)
[2020-12-26] MEDS: MULTIVITAMINS WITH IRON TABLET PO SCH (08:38)
[2020-12-26] MEDS: SERTRALINE HCL 100 MG TABLET PO SCH (08:38)
[2020-12-26] MEDS: QUEtiapine FUMARATE 100 MG TABLET PO SCH (08:39)
[2020-12-26] MEDS: DiphenhydrAMINE HCL 25 MG CAPSULE PO SCH ×2 (08:39→20:40)
[2020-12-26] MEDS: GABAPENTIN 300 MG CAPSULE PO SCH ×2 (08:44→16:21)
[2020-12-26] MEDS: NICOTINE 14 MG/24 HOUR PATCH TD SCH (09:53)
[2020-12-26] MEDS: MINERAL OIL/PETROLATUM 120 GM CREAM TP SCH ×2 (09:54→20:40)
[2020-12-26] MEDS: LORazepam 2 MG TABLET PO PRN (10:25)
[2020-12-26 11:22] LABS: GLUCOMETER DEV NAME(LOC) BV2X.2; GLUCOSE,POINT OF CARE 296 MG/DL (70-110)
[2020-12-26 16:07] VITALS: BP 105/68
[2020-12-26 16:47] LABS: GLUCOMETER DEV NAME(LOC) BV2X.2; GLUCOSE,POINT OF CARE 302 MG/DL (70-110)
[2020-12-26] MEDS: QUEtiapine FUMARATE 300 MG TABLET PO SCH (20:40)
[2020-12-26 20:51] LABS: GLUCOMETER DEV NAME(LOC) BV2X.2; GLUCOSE,POINT OF CARE 302 MG/DL (70-110)
[2020-12-27 01:28] VITALS: BP 110/64
[2020-12-27 06:22] LABS: GLUCOMETER DEV NAME(LOC) BV2X.2; GLUCOSE,POINT OF CARE 212 MG/DL (70-110)
[2020-12-27] MEDS: INSULIN LISPRO 100 UNITS/ML SQ PRN ×4 (06:27→20:33)
[2020-12-27 08:04] VITALS: BP 109/66
[2020-12-27] MEDS: QUEtiapine FUMARATE 100 MG TABLET PO SCH (08:53)
[2020-12-27] MEDS: GABAPENTIN 300 MG CAPSULE PO SCH ×2 (08:53→16:39)
[2020-12-27] MEDS: SERTRALINE HCL 100 MG TABLET PO SCH (08:53)
[2020-12-27] MEDS: CYCLOBENZAPRINE HCL 10 MG TABLET PO SCH ×2 (08:54→16:39)
[2020-12-27] MEDS: FAMOTIDINE 20 MG TABLET PO SCH (08:54)
[2020-12-27] MEDS: DiphenhydrAMINE HCL 25 MG CAPSULE PO SCH ×2 (08:54→20:32)
[2020-12-27] MEDS: MULTIVITAMINS WITH IRON TABLET PO SCH (08:54)
[2020-12-27] MEDS: MINERAL OIL/PETROLATUM 120 GM CREAM TP SCH ×2 (08:55→20:33)
[2020-12-27] MEDS: NICOTINE 14 MG/24 HOUR PATCH TD SCH (09:22)
[2020-12-27 16:06] VITALS: BP 110/57
[2020-12-27 16:30] LABS: GLUCOMETER DEV NAME(LOC) BV2X.2; GLUCOSE,POINT OF CARE 312 MG/DL (70-110)
[2020-12-27] MEDS: LORazepam 2 MG TABLET PO PRN (19:04)
[2020-12-27 20:19] LABS: GLUCOMETER DEV NAME(LOC) BV2X.2; GLUCOSE,POINT OF CARE 278 MG/DL (70-110)
[2020-12-27] MEDS: QUEtiapine FUMARATE 300 MG TABLET PO SCH (20:32)
[2020-12-28 05:01] VITALS: BP 130/77
[2020-12-28 06:27] LABS: GLUCOMETER DEV NAME(LOC) BV2X.2; GLUCOSE,POINT OF CARE 194 MG/DL (70-110)
[2020-12-28] MEDS: INSULIN LISPRO 100 UNITS/ML SQ PRN ×4 (06:41→20:43)
[2020-12-28 08:09] VITALS: BP 104/69
[2020-12-28] MEDS: SERTRALINE HCL 100 MG TABLET PO SCH (09:42)
[2020-12-28] MEDS: FAMOTIDINE 20 MG TABLET PO SCH (09:42)
[2020-12-28] MEDS: QUEtiapine FUMARATE 100 MG TABLET PO SCH (09:42)
[2020-12-28] MEDS: GABAPENTIN 300 MG CAPSULE PO SCH ×2 (09:42→16:29)
[2020-12-28] MEDS: NICOTINE 14 MG/24 HOUR PATCH TD SCH (09:42)
[2020-12-28] MEDS: MULTIVITAMINS WITH IRON TABLET PO SCH (09:43)
[2020-12-28] MEDS: DiphenhydrAMINE HCL 25 MG CAPSULE PO SCH ×2 (09:43→20:31)
[2020-12-28] MEDS: CYCLOBENZAPRINE HCL 10 MG TABLET PO SCH ×2 (09:43→16:30)
[2020-12-28] MEDS: MINERAL OIL/PETROLATUM 120 GM CREAM TP SCH ×2 (09:43→20:31)
[2020-12-28] MEDS: LORazepam 2 MG TABLET PO PRN ×2 (11:35→18:29)
[2020-12-28 11:36] LABS: GLUCOMETER DEV NAME(LOC) BV2X.2; GLUCOSE,POINT OF CARE 270 MG/DL (70-110)
[2020-12-28 16:03] VITALS: BP 99/67
[2020-12-28 16:21] LABS: GLUCOMETER DEV NAME(LOC) BV2X.2; GLUCOSE,POINT OF CARE 183 MG/DL (70-110)
[2020-12-28 20:27] LABS: GLUCOMETER DEV NAME(LOC) BV2X.2; GLUCOSE,POINT OF CARE 261 MG/DL (70-110)
[2020-12-28] MEDS: QUEtiapine FUMARATE 300 MG TABLET PO SCH (20:31)
[2020-12-29 05:26] VITALS: BP_SYST 100; BP_SYST 99; BP_DIAS 64
[2020-12-29] MEDS: INSULIN LISPRO 100 UNITS/ML SQ PRN ×4 (06:31→20:51)
[2020-12-29 06:32] LABS: GLUCOMETER DEV NAME(LOC) BV2X.2; GLUCOSE,POINT OF CARE 202 MG/DL (70-110)
[2020-12-29 08:08] VITALS: BP 100/56
[2020-12-29 08:19] LABS: COVID AG,FIA SOURCE NASOPHARYNGEAL
[2020-12-29] MEDS: SERTRALINE HCL 100 MG TABLET PO SCH (09:32)
[2020-12-29] MEDS: GABAPENTIN 300 MG CAPSULE PO SCH ×2 (09:32→16:35)
[2020-12-29] MEDS: QUEtiapine FUMARATE 100 MG TABLET PO SCH (09:32)
[2020-12-29] MEDS: MULTIVITAMINS WITH IRON TABLET PO SCH (09:32)
[2020-12-29] MEDS: CYCLOBENZAPRINE HCL 10 MG TABLET PO SCH ×2 (09:32→16:35)
[2020-12-29] MEDS: FAMOTIDINE 20 MG TABLET PO SCH (09:33)
[2020-12-29] MEDS: MINERAL OIL/PETROLATUM 120 GM CREAM TP SCH ×2 (09:33→20:33)
[2020-12-29] MEDS: DiphenhydrAMINE HCL 25 MG CAPSULE PO SCH ×2 (09:33→20:32)
[2020-12-29] MEDS: NICOTINE 14 MG/24 HOUR PATCH TD SCH (09:33)
[2020-12-29 11:27] LABS: GLUCOMETER DEV NAME(LOC) BV2X.2; GLUCOSE,POINT OF CARE 240 MG/DL (70-110)
[2020-12-29 16:03] VITALS: BP 105/65
[2020-12-29 16:24] LABS: GLUCOMETER DEV NAME(LOC) BV2X.2; GLUCOSE,POINT OF CARE 277 MG/DL (70-110)
[2020-12-29 20:30] LABS: GLUCOMETER DEV NAME(LOC) BV2X.2; GLUCOSE,POINT OF CARE 303 MG/DL (70-110)
[2020-12-29] MEDS: QUEtiapine FUMARATE 300 MG TABLET PO SCH (20:32)
[2020-12-30 00:16] VITALS: BP 117/65
[2020-12-30 06:27] LABS: GLUCOMETER DEV NAME(LOC) BV2X.2; GLUCOSE,POINT OF CARE 176 MG/DL (70-110)
[2020-12-30] MEDS: INSULIN LISPRO 100 UNITS/ML SQ PRN ×4 (06:28→20:47)
[2020-12-30 08:14] VITALS: BP 108/67
[2020-12-30] MEDS: NICOTINE 14 MG/24 HOUR PATCH TD SCH (08:20)
[2020-12-30] MEDS: MULTIVITAMINS WITH IRON TABLET PO SCH (08:20)
[2020-12-30] MEDS: SERTRALINE HCL 100 MG TABLET PO SCH (08:21)
[2020-12-30] MEDS: QUEtiapine FUMARATE 100 MG TABLET PO SCH (08:21)
[2020-12-30] MEDS: GABAPENTIN 300 MG CAPSULE PO SCH ×2 (08:21→16:34)
[2020-12-30] MEDS: CYCLOBENZAPRINE HCL 10 MG TABLET PO SCH ×2 (08:21→16:34)
[2020-12-30] MEDS: FAMOTIDINE 20 MG TABLET PO SCH (08:21)
[2020-12-30] MEDS: DiphenhydrAMINE HCL 25 MG CAPSULE PO SCH ×2 (08:21→20:31)
[2020-12-30] MEDS: MINERAL OIL/PETROLATUM 120 GM CREAM TP SCH ×2 (08:21→20:31)
[2020-12-30] MEDS: LORazepam 2 MG TABLET PO PRN (11:24)
[2020-12-30 11:32] LABS: GLUCOMETER DEV NAME(LOC) BV2X.2; GLUCOSE,POINT OF CARE 282 MG/DL (70-110)
[2020-12-30 16:04] VITALS: BP 109/63
[2020-12-30 16:30] LABS: GLUCOMETER DEV NAME(LOC) BV2X.2; GLUCOSE,POINT OF CARE 221 MG/DL (70-110)
[2020-12-30 20:29] LABS: GLUCOMETER DEV NAME(LOC) BV2X.2; GLUCOSE,POINT OF CARE 255 MG/DL (70-110)
[2020-12-30] MEDS: QUEtiapine FUMARATE 300 MG TABLET PO SCH (20:30)
[2020-12-31 00:05] VITALS: BP 134/75
[2020-12-31 06:39] LABS: GLUCOMETER DEV NAME(LOC) BV2X.2; GLUCOSE,POINT OF CARE 202 MG/DL (70-110)
[2020-12-31] MEDS: INSULIN LISPRO 100 UNITS/ML SQ PRN ×4 (07:12→20:18)
[2020-12-31 08:19] VITALS: BP 106/64
[2020-12-31] MEDS: GABAPENTIN 300 MG CAPSULE PO SCH ×2 (08:23→16:32)
[2020-12-31] MEDS: DiphenhydrAMINE HCL 25 MG CAPSULE PO SCH ×2 (08:23→20:11)
[2020-12-31] MEDS: FAMOTIDINE 20 MG TABLET PO SCH (08:23)
[2020-12-31] MEDS: SERTRALINE HCL 100 MG TABLET PO SCH (08:23)
[2020-12-31] MEDS: MULTIVITAMINS WITH IRON TABLET PO SCH (08:23)
[2020-12-31] MEDS: CYCLOBENZAPRINE HCL 10 MG TABLET PO SCH ×2 (08:23→16:32)
[2020-12-31] MEDS: QUEtiapine FUMARATE 100 MG TABLET PO SCH (08:23)
[2020-12-31] MEDS: NICOTINE 14 MG/24 HOUR PATCH TD SCH (08:24)
[2020-12-31] MEDS: MINERAL OIL/PETROLATUM 120 GM CREAM TP SCH ×2 (08:34→20:13)
[2020-12-31 11:13] LABS: GLUCOMETER DEV NAME(LOC) BV2X.2; GLUCOSE,POINT OF CARE 194 MG/DL (70-110)
[2020-12-31] MEDS: ACETAMINOPHEN 325 MG TABLET PO PRN (12:30)
[2020-12-31 16:03] VITALS: BP 138/62
[2020-12-31 16:55] LABS: GLUCOMETER DEV NAME(LOC) BV2X.2; GLUCOSE,POINT OF CARE 291 MG/DL (70-110)
[2020-12-31] MEDS: QUEtiapine FUMARATE 300 MG TABLET PO SCH (20:11)
[2020-12-31 20:17] LABS: GLUCOMETER DEV NAME(LOC) BV2X.2; GLUCOSE,POINT OF CARE 240 MG/DL (70-110)
[2021-01-01 00:25] VITALS: BP 112/68
[2021-01-01 06:33] LABS: GLUCOMETER DEV NAME(LOC) BV2X.2; GLUCOSE,POINT OF CARE 207 MG/DL (70-110)
[2021-01-01] MEDS: INSULIN LISPRO 100 UNITS/ML SQ PRN ×2 (07:01→11:24)
[2021-01-01 08:21] VITALS: BP 102/65
[2021-01-01] MEDS: MULTIVITAMINS WITH IRON TABLET PO SCH (08:25)
[2021-01-01] MEDS: GABAPENTIN 300 MG CAPSULE PO SCH (08:26)
[2021-01-01] MEDS: QUEtiapine FUMARATE 100 MG TABLET PO SCH (08:26)
[2021-01-01] MEDS: DiphenhydrAMINE HCL 25 MG CAPSULE PO SCH (08:26)
[2021-01-01] MEDS: SERTRALINE HCL 100 MG TABLET PO SCH (08:26)
[2021-01-01] MEDS: FAMOTIDINE 20 MG TABLET PO SCH (08:26)
[2021-01-01] MEDS: CYCLOBENZAPRINE HCL 10 MG TABLET PO SCH (08:26)
[2021-01-01] MEDS: NICOTINE 14 MG/24 HOUR PATCH TD SCH (08:27)
[2021-01-01] MEDS: MINERAL OIL/PETROLATUM 120 GM CREAM TP SCH (09:02)
[2021-01-01 11:31] LABS: GLUCOMETER DEV NAME(LOC) BV2X.2; GLUCOSE,POINT OF CARE 297 MG/DL (70-110)
[2021-01-01] MEDS ORDERED: SERT-162 PO (14:35)
[2021-01-01] MEDS ORDERED: QUET100T PO (14:35)
[2021-01-01] MEDS ORDERED: QUET300T2 PO (14:35)
[2021-01-01] MEDS ORDERED: INSU100V SQ (14:38)
[2021-01-01] MEDS ORDERED: INSLAN SQ (14:38)
[2021-01-01] MEDS ORDERED: INSULIN GLARGINE,HUM.REC.ANLOG 100 UNITS/ML SQ SCH (21:00)
== END 2021-01-01 13:35 | DRG 885 ==
LOC: EMS 23:04 → B2X 12-10 03:00
PROVIDERS: ADMIT Psychiatry & Neurology Child & Adolescent Psychiatry; ATTEND Psychiatry & Neurology Child & Adolescent Psychiatry
DX: F33.2 Major depressive disorder, recurrent severe without psychotic features (principal); E11.65 Type 2 diabetes mellitus with hyperglycemia; R45.851 Suicidal ideations; F41.9 Anxiety disorder, unspecified; F17.200 Nicotine dependence, unspecified, uncomplicated; E11.9 Type 2 diabetes mellitus without complications; D64.9 Anemia, unspecified; B88.8 Other specified infestations; B86 Scabies; W57.XXXA Bitten or stung by nonvenomous insect and other nonvenomous arthropods, initial encounter; Z59.00 Homelessness unspecified; Z90.49 Acquired absence of other specified parts of digestive tract; Z90.5 Acquired absence of kidney; Z90.710 Acquired absence of both cervix and uterus; Z79.899 Other long term (current) drug therapy; Y93.89 Activity, other specified; Y92.89 Other specified places as the place of occurrence of the external cause; Y99.8 Other external cause status; Z20.822 Contact with and (suspected) exposure to COVID-19
CPT/HCPCS: 80053; 80061; 82962; 85025; 99285; G0480; G0481; J1815